=== PATIENT | female | born 1990 | race African-American/Black ===

== ENCOUNTER 2018-11-01 08:09 | Emergency (ER) | payer OTHER, SELFPAY ==
[~2018-11-01] VITALS: Ht 165.1 cm; Wt 86.2 kg
[~2018-11-01 08:09] MED LIST: AMOX500C PO
[2018-11-01 08:14] VITALS: BP 134/69
--- NOTE | 2018-11-01 08:47 | RAD ---
CHEST PA LATERAL Clinical indications: Cough and thoracic back pain COMPARISON: None available. Findings: No acute lung infiltrate or pleural effusion or pulmonary edema or lung mass or pneumothorax is seen. The heart size, pulmonary vasculature, mediastinum and both david are unremarkable. The osseous structures appear intact. Impression: No acute radiographic abnormality is seen. Electronically signed by: Darius Barros MD (11/01/2018 8:44 AM) [facility]
[2018-11-01] MEDS ORDERED: BENZ100C PO (09:00)
[2018-11-01] MEDS ORDERED: NAPR-683 PO (09:00)
[2018-11-01] MEDS ORDERED: AZIT250T PO (09:00)
[2018-11-01] MEDS ORDERED: TRAM-48 PO (09:00)
[2018-11-01] MEDS ORDERED: CYCL10TA2 PO (09:00)
--- NOTE | 2018-11-01 09:00 | PHYS DOC ---
Past Medical History Past Medical History: No Pertinent History Past Surgical History: No Surgical History Alcohol Use: Occasionally Drug Use: None Adult General Chief Complaint Chief Complaint: BACK PAIN - NO INJURY [facility] HPI Patient is a 28 year old female who presents with complaining of back pain. Patient complaining of mid back pain for the last 3 days as a constant pain that getting worse with coughing. Patient denies focal neuro deficit, fever and ch ills, urine and bowel incontinence. Patient states the pain did not get better with taking ibuprofen. Patient also complaining of nasal congestion and cough for the last 3 days without shortness of breath, chest pain, sick contact. Review of Systems Review of Systems Constitutional: Denies fever or chills [] Eyes: Denies change in visual acuity, redness, or eye pain [] HENT: Reports nasal congestion Respiratory: Reports cough, denies shortness of breath Cardiovascular: No additional information not addressed in HPI [] GI: Denies abdominal pain, nausea, vomiting, bloody stools or diarrhea [] : Denies dysuria or hematuria [] Musculoskeletal: Reports back pain Integument: Denies rash or skin lesions [] Neurologic: Denies headache, focal weakness or sensory changes [] Endocrine: Denies polyuria or polydipsia [] All other systems were reviewed and found to be within normal limits, except as documented in this note. Allergies Allergies Allergies Coded Allergies Type Severity Reaction Last Updated Verified No Known Drug Allergies 07/05/14 No Physical Exam Physical Exam Constitutional: Well developed, well nourished, mild distress, non-toxic appearance. [] HENT: Normocephalic, atraumatic, bilateral external ears normal, oropharynx moist, no oral exudates, nose normal. [] Eyes: PERRLA, EOMI, conjunctiva normal, no discharge. [] Neck: Normal range of motion, no tenderness, supple, no stridor. [] Cardiovascular:Heart rate regular rhythm, no murmur [] Lungs & Thorax: Bilateral breath sounds clear to auscultation [] Abdomen: Bowel sounds normal, soft, no tenderness, no masses, no pulsatile masses. [] Skin: Warm, dry, no erythema, no rash. [] Back: No midline tenderness, bilateral paraspinal muscle spasm ,no CVA tenderness. [] Extremities: No tenderness, no cyanosis, no clubbing, ROM intact, no edema. [] Neurologic: Alert and oriented X 3, normal motor function, normal sensory function, no focal deficits noted. [] Psychologic: Affect normal, judgement normal, mood normal. [] Current Patient Data Vital Signs Vital Signs Date Time Temp Pulse Resp B/P (MAP) Pulse Ox O2 Delivery O2 Flow Rate FiO2 11/01/18 08:14 98.8 90 17 134/69 (90) 99 98.8 EKG EKG [] Radiology/Procedures Radiology/Procedures [facility] [address] [place] [address] IMAGING REPORT Signed PATIENT: MARK GRIER ACCOUNT: [id number] : 1990 LOCATION: ER AGE: 28 SEX: F EXAM STATUS: REG ER ORD. PHYSICIAN: CHRISTIANO HENAO MD REASON: cough and thoracic back pain PROCEDURE: CHEST PA & LATERAL CHEST PA LATERAL Clinical indications: Cough and thoracic back pain COMPARISON: None available. Findings: No acute lung infiltrate or pleural effusion or pulmonary edema or lung mass or pneumothorax is seen. The heart size, pulmonary vasculature, mediastinum and both david are unremarkable. The osseous structures appear intact. Impression: No acute radiographic abnormality is seen. Electronically signed by: Kristofer Godinez MD (11/01/2018 8:44 AM) [facility] DICTATED and SIGNED BY: KRISTOFER GODINEZ MD DATE: 11/01/18 0844 Course & Med Decision Making Course & Med Decision Making Pertinent Imaging studies reviewed. (See chart for details) Evaluation of patient in ER showed 28-year-old female patient with complaining of thoracic back pain. Of cough for the last 2 days. Chest x-ray was unremarkable. Plan discharge patient home with diagnosis of thoracic myofascial strain and bronchitis. Dragon Disclaimer Dragon Disclaimer This electronic medical record was generated, in whole or in part, using a voice recognition dictation system. Departure Departure Impression: Primary Impression: Acute thoracic myofascial strain Additional Impression: Acute bronchitis Disposition: 01 HOME, SELF-CARE (at 0 [phone]) Referrals: NO PCP (PCP) Patient Instructions: Acute Bronchitis, Thoracic Strain Additional Instructions: Drink plenty of liquids Follow-up with your primary care physician in 3-5 days Return to ER if not getting better Apply ice on your back Scripts Azithromycin (ZITHROMAX) 250 Mg Tablet 1 PKG PO UD for infection, #1 PKG Prov: CHRISTIANO HENAO MD 11/01/18 Tramadol Hcl (ULTRAM) 50 Mg Tablet 50 MG PO Q6HRS PRN for PAIN, #14 TAB 0 Refills Prov: CHRISTIANO HENAO MD 11/01/18 Benzonatate (TESSALON PERLE) 100 Mg Capsule 1 CAP PO TID for cough, #21 CAP Prov: CHRISTIANO HENAO MD 11/01/18 Naproxen (NAPROSYN) 500 Mg Tablet 1 TAB PO BID for pain, #20 TAB Prov: CHRISTIANO HENAO MD 11/01/18 Cyclobenzaprine Hcl (CYCLOBENZAPRINE HCL) 10 Mg Tablet 1 TAB PO TID for muscle pain, #30 TAB Prov: CHRISTIANO HENAO MD 11/01/18 Problem Qualifiers Primary Impression: Acute thoracic myofascial strain Encounter type: initial encounter Qualified Codes: S29.019A - Strain of muscle and tendon of unspecified wall of thorax, initial encounter Additional Impression: Acute bronchitis Bronchitis organism: unspecified organism Qualified Codes: J20.9 - Acute bronchitis, unspecified CHRISTIANO HENAO MD November 01, 2018 09:00
== END 2018-11-01 09:10 | disposition home or self-care (01) ==
LOC: ER 08:09
DX: S29.012A Strain of muscle and tendon of back wall of thorax, initial encounter (principal); J20.9 Acute bronchitis, unspecified; X58.XXXA Exposure to other specified factors, initial encounter; Y93.89 Activity, other specified; Y92.89 Other specified places as the place of occurrence of the external cause; Y99.8 Other external cause status
CPT/HCPCS: 71046; 99284

== ENCOUNTER 2018-12-31 06:08 | Emergency (ER) | payer MEDICAID ==
[~2018-12-31] VITALS: Ht 165.1 cm; Wt 86.2 kg
[~2018-12-31 06:08] MED LIST changes: +AZIT250T PO; +BENZ100C PO; +CYCL10TA2 PO; +NAPR-683 PO; +TRAM-48 PO
[2018-12-31 06:16] VITALS: BP 140/89
--- NOTE | 2018-12-31 06:57 | PHYS DOC ---
Past Medical History Past Medical History: No Pertinent History Past Surgical History: No Surgical History Alcohol Use: Occasionally Drug Use: None Adult General Chief Complaint Chief Complaint: LOWER BACK PAIN OR INJURY [facility] HPI Patient is a 28 year old -[place] female with history of chronic low back pain who presents with exacerbation of chronic back pain. Patient denies fall or recent injury. Patient was seen in the emergency department [facility] 2 months ago for the same. She was prescribed tramadol which she did not tolerate to side effects. She was seen her PCP and was prescribed a muscle relaxant which has not alleviated her pain. She denies radicular symptoms, urinary incontinence and frequency urgency or burning. No fever chills or sweats. No radicular complaints motor weakness. No other acute symptoms or compl aints. [] Review of Systems Review of Systems ROS as per HPI All other systems were reviewed and found to be within normal limits, except as documented in this note. Current Medications Current Medications Current Medications Medications (Trade) Dose Ordered Sig/Yenny Start Time Stop Time Status Last Admin Dose Admin Ketorolac Tromethamine (Toradol 30mg Vial) 30 mg 1X ONCE 12/31/18 07:00 12/31/18 07:01 12/31/18 06:52 30 MG Allergies Allergies Allergies Coded Allergies Type Severity Reaction Last Updated Verified No Known Drug Allergies 07/05/14 No Physical Exam Physical Exam Constitutional: Moderate discomfort secondary to pain. [] HENT: Normocephalic, atraumatic, bilateral external ears normal, oropharynx moist, no oral exudates, nose normal. [] Eyes: PERRLA, EOMI, conjunctiva normal, no discharge. [] Neck: Normal range of motion, no tenderness, supple, no stridor. [] Skin: Warm, dry, no erythema, no rash. [] Back: Upper lumbar, paravertebral pain, no midline bony tenderness. Pain reproduces palpation trunk rotation.[] Extremities: No tenderness, no edema. [] Neurologic: Alert and oriented X 3, lower extremities, normal motor function, n ormal sensory function, no focal deficits noted. [] Psychologic: Affect normal, judgement normal, mood normal. [] Current Patient Data Lab Values Laboratory Tests Test 12/31/18 06:44 POC Urine HCG, Qualitative Hcg negative (Negative) EKG EKG [] Radiology/Procedures Radiology/Procedures [] Course & Med Decision Making Course & Med Decision Making Pertinent Labs and Imaging studies reviewed. (See chart for details) [Exacerbation of chronic back pain. No neurodeficits Toradol given. Recommend follow-up with PCP for further evaluation and management.] Dragon Disclaimer Dragon Disclaimer This electronic medical record was generated, in whole or in part, using a voice recognition dictation system. Departure Departure Impression: Primary Impression: Chronic lower back pain Disposition: HOME, SELF-CARE Condition: GOOD Patient Instructions: Back Pain, Adult, [id number] Additional Instructions: Please continue ibuprofen and muscle relaxant for treatment of low back pain. Follow-up with PCP for further evaluation and management. DANIEL MARSHALL DO Dec 31, 2018 06:57
[2018-12-31] MEDS ORDERED: KETOROLAC 30 MG/ML VIAL. IM ONE (07:00)
== END 2018-12-31 06:50 | disposition home or self-care (01) ==
LOC: ER 06:08
DX: G89.29 Other chronic pain (principal); M54.5 Low back pain
CPT/HCPCS: 81025; 96372; 99283; J1885